=== PATIENT | female | born 1990 | race Caucasian/White ===

== ENCOUNTER 2016-11-27 16:17 | Emergency (ER) | payer SELFPAY ==
[~2016-11-27] VITALS: Ht 180.3 cm; Wt 108.9 kg
--- NOTE | 2016-11-27 17:41 | ED Cough/URI ---
General Chief Complaint: Cough/Cold/Flu Symptoms Stated Complaint: SOB,COUGHING,TIGHTNESS OF CHEST,DIZZINESS Nursing Triage Note: AMB TO ROOM WITH MALE REPORTS SHE HAS BEEN COUGHING FOR 1 WEEK ,AND LMP WAS IN OCTOBER THINKS SHE MAY BE PREG. Source: patient, other (significant other ) Exam Limitations: no limitations History of Present Illness Time seen by provider: 17:41 Initial Comments 26-year-old female patient presents to the emergency department with complaints of one-week onset of coughing, chest congestion, sore throat, ear pain. Reports overall malaise. States she did have one to 2 days of fever, but states no fever for 5 days. Patient states she could possibly be . Timing/Duration: constant, week Severity/Quality: productive cough (yellowish green sputum) Prior Episodes/Possible Cause: no prior episodes Modifying Factors: Worse With Coughing Allergies and Home Medications Allergies Uncoded Allergies: MUSCLE REXLANT (Allergy, Unknown, 11/27/16) Home Medications Albuterol Sulfate 6.7 Gm Hfa.aer.ad, 2 PUFF IH Q6H PRN for SHORTNESS OF BREATH, #1 Ref 0 Prescribed by: PEARL SANCHES on 11/27/161818 Doxycycline Hyclate 100 Mg Capsule, 100 MG PO BID, #20 Ref 0 Prescribed by: PEARL SANCHES on 11/27/161818 Prednisone 20 Mg Tab, 40 MG PO DAILY, #10 Ref 0 Prescribed by: PEARL SANCHES on 11/27/161818 Constitutional: see HPI, No fever, malaise EENTM: ear pain, hoarseness, nose congestion, throat pain, No throat swelling Respiratory: see HPI, cough, phlegm, short of breath, wheezing Cardiovascular: no symptoms reported Gastrointestinal: No abdominal pain, No constipation, No diarrhea, No nausea, No vomiting Genitourinary: no symptoms reported Musculoskeletal: no symptoms reported Skin: no symptoms reported Psychiatric/Neurological: No Symptoms Reported All Other Systems Reviewed Negative Unless Noted: Yes (Negative excepted noted.) Past Xcifbic-Yejuwy-Ftdpxi Hx Patient Social History Alcohol Use: Occasionally Uses Recreational Drug Use: No Smoking Status: Current Everyday Smoker Recent Foreign Travel: No Contact w/Someone Who Travel: No Recent Infectious Disease Expo: No Surgeries HX Surgeries: Yes Surgeries: Orthopedic Respiratory Hx Respiratory Disorders: Yes Respiratory Disorders: Asthma ((as a child)) Cardiovascular Hx Cardiac Disorders: No Neurological Hx Neurological Disorders: No Genitourinary Hx Genitourinary Disorders: No Gastrointestinal Hx Gastrointestinal Disorders: No Reviewed Nursing Assessment Reviewed/Agree w Nursing PMH: Yes Family Medical History Significant Family History: No Pertinent Family Hx Physical Exam Vital Signs Vital Sign - Last 12Hours 11/27/16 16:48 Temp 99.0 Pulse 92 Resp 18 B/P (MAP) 152/112 Pulse Ox 99 O2 Delivery Room Air Capillary Refill : Less Than 3 Seconds General Appearance: WD/WN, no apparent distress HEENT: PERRL/EOMI, TMs normal, pharyngeal erythema Neck: non-tender, full range of motion, supple, lymphadenopathy (R), lymphadenopathy (L) Respiratory: no respiratory distress, no accessory muscle use, decreased breath sounds, rhonchi, wheezing, expiration Cardiovascular: normal peripheral pulses, regular rate, rhythm, no edema, no murmur Gastrointestinal: non tender, soft, No distended Extremities: no pedal edema, normal capillary refill Neurologic/Psychiatric: alert, normal mood/affect, oriented x 3 Skin: normal color, warm/dry Progress/Results/Core Measures Results/Orders My Orders Orders - PEARL SANCHES PA Urine Bedside (11/27/16 17:21) Chest Pa/Lat (2 View) (11/27/16 17:21) Albuterol/Ipra Inhalation Soln (Duoneb I (11/27/16 18:15) Promethazine/ Codeine Syrup (Phenergan W (11/27/16 18:13) Methylprednisolone Sod Succ (Solu-Medrol (11/27/16 18:13) Svn Sm Volume Nebulizer Rt-Rfs (11/27/16 18:13) Rx-Albuterol Inhaler (Rx-Proair) (11/27/16 19:05) Medications Given in ED Current Medications Medications Dose Ordered Sig/Amor Route Start Time Stop Time Status Last Admin Dose Admin Albuterol/ Ipratropium 3 ml ONCE ONCE INH 11/27/16 18:15 11/27/16 18:16 DC 11/27/16 18:32 3 ML Vital Signs/I&O Vital Sign - Last 12Hours 11/27/16 11/27/16 11/27/16 16:48 18:32 19:09 Temp 99.0 Pulse 92 94 Resp 18 18 B/P (MAP) 152/112 Pulse Ox 99 100 96 O2 Delivery Room Air Blood Pressure Mean: 125 Diagnostic Imaging Diagonstic Imaging: Xray Plain Films/CT/US/NM/MRI: chest Comments EXAM: Chest x-ray PA and lateral views. COMPARISONS: None. FINDINGS: Lungs/ pleura: Lungs are clear. There is no pneumothorax. There is no pleural effusion. Mediastinum: Unremarkable. Pulmonary vasculature: Unremarkable. Heart : Unremarkable. Bones/extrathoracic soft tissue: Unremarkable. IMPRESSION: There is no radiographic evidence of acute cardiopulmonary process. Dictated on workstation # [id number] Reviewed: Reviewed by Me (radiology report reviewed by me.) Departure Communication Progress Notes Patient seen and evaluated. Diagnostic findings discussed with the patient. Patient was given 1 DuoNeb treatment, solu-Medrol, and Phenergan with codeine with improvement in symptoms in the emergency department. Lungs show improved breath sounds bilaterally with minimal expiratory wheeze in the left upper lobe. Proceed with discharge to home. Impression Impression: Primary Impression: Bronchitis Disposition: , SELF-CARE Condition: Improved Departure-Patient Inst. Decision time for Depature: 18:17 Referrals: NO,LOCAL PHYSICIAN (PCP) Primary Care Physician Patient Instructions: Acute Bronchitis, Adult (DC) Add. Discharge Instructions: All discharge instructions reviewed with patient and/or family. Voiced understanding. Medications as directed. Tylenol extra strength over-the- counter as directed for pain, headache, fever. Ibuprofen 800 mg by mouth every 8 hours as needed for pain, fever, headache." Cool humidifier if needed. Over- the-counter Afrin and saline nasal spray as directed for nasal congestion. Mucinex qxnz-wxe-yggochv for chest congestion. Follow-up with family practitioner for recheck if no improvement in symptoms. Return to the emergency department for worsened symptoms or any other concerns. Scripts Albuterol Sulfate (Proventil Hfa) 6.7 Gm Hfa.aer.ad 2 PUFF IH Q6H Y for SHORTNESS OF BREATH, #1 EACH 0 Refills Prov: PEARL SANCHES 11/27/16 Doxycycline Hyclate (Doxycycline Hyclate) 100 Mg Capsule 100 MG PO BID, #20 CAP 0 Refills Prov: PEARL SANCHES 11/27/16 Prednisone (Prednisone) 20 Mg Tab 40 MG PO DAILY, #10 TAB 0 Refills Prov: PEARL SANCHES 11/27/16 Work/School Note: Work Release Form Date Seen in the Emergency Department: November 27, 2016 Return to Work: November 29, 2016 Restrictions: No Restrictions PEARL SANCHES November 27, 2016 17:41
--- NOTE | 2016-11-27 18:10 | Diagnostic Imaging Report ---
CLINICAL INDICATION: Patient with cough, congestion and shortness of air and chest tightness x1 week which is getting worse. EXAM: Chest x-ray PA and lateral views. COMPARISONS: None. FINDINGS: Lungs/pleura: Lungs are clear. There is no pneumothorax. There is no pleural effusion. Mediastinum: Unremarkable. Pulmonary vasculature: Unremarkable. Heart: Unremarkable. Bones/extrathoracic soft tissue: Unremarkable. IMPRESSION: There is no radiographic evidence of acute cardiopulmonary process. Dictated by: Dictated on workstation # [id number]
[2016-11-27] MEDS ORDERED: PROMETHAZINE/ CODEINE SYRUP 5 ML UDC PO STA (18:13)
[2016-11-27] MEDS ORDERED: methylPREDNISolone 125 MG (Solu-MEDROL) VIAL IM STA (18:13)
[2016-11-27] MEDS ORDERED: RT-ALBUTEROL/IPRATROPIUM 3 ML (DUONEB) VIAL INH ONE (18:15)
[2016-11-27] MEDS ORDERED: PRD20T PO (18:19)
[2016-11-27] MEDS ORDERED: DOXY100C2 PO (18:19)
[2016-11-27] MEDS ORDERED: RT-ALBUINH IH (18:19)
[2016-11-27] MEDS ORDERED: RX-ALBUTEROL INHALER (PROAIR) 8 GM IH STA (19:05)
[2016-11-27 19:09] VITALS: BP 148/99
== END 2016-11-27 19:08 | disposition home or self-care (01) ==
LOC: ER 16:24
DX: J40 Bronchitis, not specified as acute or chronic (principal); R42 Dizziness and giddiness; F17.210 Nicotine dependence, cigarettes, uncomplicated
CPT/HCPCS: 71020; 84703; 94640; 96372; 99283

== ENCOUNTER 2018-10-16 12:10 | Emergency (ER) | payer SELFPAY ==
[~2018-10-16] VITALS: Ht 167.6 cm; Wt 83.9 kg
[~2018-10-16 12:10] MED LIST: DOXY100C2 PO; PRD20T PO; RT-ALBUINH IH
--- NOTE | 2018-10-16 13:21 | ED Cough/URI ---
General Chief Complaint: Cough/Cold/Flu Symptoms Stated Complaint: SORE THROAT;HEADACHE;FEVER Nursing Triage Note: PT CO OF FLU LIKE SX, SORE THROAT, EAR ACHE, INTERMITTENT FEVERS. Sepsis Screen: No Definite Risk Source: patient Exam Limitations: no limitations History of Present Illness Date Seen by Provider: Oct 16, 2018 Time Seen by Provider: 13:16 Initial Comments 28-year-old female who presents to the emergency room with complaints of flulike symptoms, sore throat, bilateral ear pain, intermittent fevers for the past 2 weeks. She reports taking hhuz-slh-borrkba medications without relief of throat pain. Timing/Duration: just prior to arrival Associated Symptoms: cough, fever/chills, sore throat Allergies and Home Medications Allergies Uncoded Allergies: MUSCLE REXLANT (Allergy, Unknown, 11/27/16) Home Medications Albuterol Sulfate 6.7 Gm Hfa.aer.ad, 2 PUFF IH Q6H PRN for SHORTNESS OF BREATH Prescribed by: PEARL SANCHES on 11/27/161818 Amoxicillin 500 Mg Capsule, 500 MG PO BID Prescribed by: ANTIONETTE MONTESINOS on 10/16/18 1329 Doxycycline Hyclate 100 Mg Capsule, 100 MG PO BID Prescribed by: PEARL SANCHES on 11/27/161818 Prednisone 20 Mg Tab, 40 MG PO DAILY Prescribed by: PEARL SANCHES on 11/27/161818 Patient Home Medication List Home Medication List Reviewed: Yes Review of Systems Review of Systems Constitutional: see HPI, chills, fever EENTM: see HPI, ear pain, throat pain Respiratory: see HPI, cough All Other Systems Reviewed Negative Unless Noted: Yes Past Jmbcfun-Sxdobp-Tjykol Hx Past Med/Social Hx: Reviewed Nursing Past Med/Soc Hx Patient Social History Alcohol Use: Denies Use Recreational Drug Use: No Smoking Status: Never a Smoker Recent Foreign Travel: No Contact w/Someone Who Travel: No Recent Infectious Disease Expo: No Recent Hopitalizations: No Past Medical History Surgeries: Yes Orthopedic Respiratory: No Asthma Cardiac: No Neurological: No Genitourinary: No Gastrointestinal: No Musculoskeletal: No Endocrine: No HEENT: No Cancer: No Psychosocial: No Integumentary: No Family Medical History No Pertinent Family Hx Physical Exam Vital Signs - First Documented 10/16/18 12:50 Temp 97.4 Pulse 85 Resp 18 B/P (MAP) 148/97 (114) Pulse Ox 97 Capillary Refill : Less Than 3 Seconds Height: 5'6.00" Weight: 185lbs. oz. 83.967063hb; BMI Method:Estimated General Appearance: WD/WN, no apparent distress HEENT: PERRL/EOMI, pharyngeal erythema, tonsillar exudate Neck: non-tender, full range of motion, supple, normal inspection, carotid bruit Respiratory: chest non-tender, lungs clear, normal breath sounds, no respiratory distress, no accessory muscle use, respiratory distress Cardiovascular: normal peripheral pulses, regular rate, rhythm, no edema, no gallop, no JVD, no murmur Extremities: normal capillary refill Neurologic/Psychiatric: alert, normal mood/affect, oriented x 3 Skin: normal color, warm/dry Progress/Results/Core Measures Suspected Sepsis Recent Fever Within 48 Hours: No Infection Criteria Present: None New/Unexplained Altered Menta: No Sepsis Screen: No Definite Risk SIRS Temperature:97.4 Pulse: 85 Respiratory Rate: 18 Blood Pressure 148 /97 Mean: 114 Results/Orders Lab Results Laboratory Tests Test 10/16/18 13:15 Range/Units Group A Streptococcus Screen NEGATIVE NEGATIVE Micro Results Microbiology 10/16/18 Throat Culture - Final, Complete No Beta Strep isolated 10/16/18 Influenza Types A,B Antigen (CHEPE) - Final, Complete My Orders Orders - ANTIONETTE MONTESINOS Influenza A And B Antigens (10/16/18 12:56) Rapid Strep A Screen (10/16/18 13:13) Vital Signs/I&O 10/16/18 10/16/18 12:50 13:48 Temp 97.4 97.4 Pulse 85 85 Resp 18 18 B/P (MAP) 148/97 (114) 148/97 (114) Pulse Ox 97 97 Capillary Refill : Less Than 3 Seconds Blood Pressure Mean: 114 Departure Impression Primary Impression: Influenza Additional Impression: Acute pharyngitis Disposition: 01 HOME, SELF-CARE Condition: Stable/Unchanged Departure-Patient Inst. Decision time for Depature: 13:27 Referrals: NO,LOCAL PHYSICIAN (PCP) Primary Care Physician Patient Instructions: Flu, Adult (DC) Add. Discharge Instructions: Continue to use pdxc-nhx-vjbmgsh ibuprofen and Tylenol for pain and fever. Take medications as directed. Return back to the emergency room for worsening symptoms or concerns as needed. Follow-up with your primary care provider within 1 week for recheck. All discharge instructions reviewed with patient and/ or family. Voiced understanding. Scripts Amoxicillin (Amoxicillin) 500 Mg Capsule 500 MG PO BID for 10 Days, #20 CAP Prov: ANTIONETTE MONTESINOS 10/16/18 ANTIONETTE MONTESINOS Oct 16, 2018 13:21
[2018-10-16] MEDS ORDERED: AMOX500C2 PO (13:29)
[2018-10-16 13:48] VITALS: BP 148/97
== END 2018-10-16 13:47 | disposition home or self-care (01) ==
LOC: EDUNIT# 12:10 → ER 12:11
DX: J11.1 Influenza due to unidentified influenza virus with other respiratory manifestations (principal); J02.9 Acute pharyngitis, unspecified; J45.909 Unspecified asthma, uncomplicated; Z88.8 Allergy status to other drugs, medicaments and biological substances; Z79.52 Long term (current) use of systemic steroids
CPT/HCPCS: 87430; 87804

== ENCOUNTER 2020-10-30 13:14 | Emergency (ER) | payer SELFPAY ==
[~2020-10-30] VITALS: Ht 180.3 cm; Wt 113.4 kg
[~2020-10-30 13:14] MED LIST changes: +AMOX500C2 PO
--- NOTE | 2020-10-30 14:52 | ED General ---
General Chief Complaint: General Problems/Pain Stated Complaint: CP,SOB Nursing Triage Note: PT REPORTS HAVING A PANIC ATTACK 2 DAYS AGO. SINCE THEN, PT HAS HAD STERNAL PAIN & EPIGASTRIC PAIN THAT SPREADS TO BILATERAL CHEST, ARMS, SHOULDERS, AND BACK. PT REPORTS SHE CAME TO THE ED TODAY DUE TO SHARP PAIN IN HER CHEST THAT CAME ON WHEN SHE WAS LIFTING A POT INTO THE OVEN. Nursing Sepsis Screen: No Definite Risk Source of Information: Patient Exam Limitations: No Limitations History of Present Illness Date Seen by Provider: Oct 30, 2020 Time Seen by Provider: 13:28 Initial Comments This is a 30-year-old female who presents to the ER with complaints of sharp chest wall, shoulder, back tenderness when she takes a deep breath. States that she recently had a severe panic attack 2 days ago and every since the panic attack she has been experiencing this increasing pain in her entire thorax region. States that this is happened in the past when she had a severe panic attack, however wanted to get checked out since the pain was persisting. Denies fever, chills, cough, shortness of breath, nausea/vomiting/diarrhea, abdominal pain. No h/o COVID, ill contacts, or recent vaccinations. Allergies and Home Medications Allergies Uncoded Allergies: MUSCLE REXLANT (Allergy, Unknown, 11/27/16) Home Medications Albuterol Sulfate 6.7 Gm Hfa.aer.ad, 2 PUFF IH Q6H PRN for SHORTNESS OF BREATH Prescribed by: PEARL SANCHES on 11/27/161818 Amoxicillin 500 Mg Capsule, 500 MG PO BID Prescribed by: ANTIONETTE MONTESINOS on 10/16/18 1329 Doxycycline Hyclate 100 Mg Capsule, 100 MG PO BID Prescribed by: PEARL SANCHES on 11/27/161818 Prednisone 20 Mg Tab, 40 MG PO DAILY Prescribed by: PEARL SANCHES on 11/27/161818 Patient Home Medication List Home Medication List Reviewed: Yes Review of Systems Review of Systems Constitutional: see HPI EENTM: no symptoms reported Respiratory: see HPI Cardiovascular: see HPI Gastrointestinal: no symptoms reported Genitourinary: no symptoms reported LMP: Oct 24, 2020 Musculoskeletal: see HPI Skin: no symptoms reported Psychiatric/Neurological: See HPI Hematologic/Lymphatic: No Symptoms Reported Immunological/Allergic: no symptoms reported Past Inxuxhq-Emzfhy-Mujjzq Hx Patient Social History Alcohol Use: Rarely Uses Smoking Status: Current Everyday Smoker Recent Infectious Disease Expo: No Recent Hopitalizations: No Seasonal Allergies Seasonal Allergies: No Past Medical History Surgeries: Yes Orthopedic Respiratory: No Asthma Cardiac: No Neurological: No Genitourinary: No Gastrointestinal: No Musculoskeletal: No Endocrine: No HEENT: No Cancer: No Psychosocial: No Integumentary: No Family Medical History No Pertinent Family Hx Physical Exam Vital Signs Vital Signs - First Documented 10/30/20 13:52 Temp 36.6 Pulse 90 Resp 16 B/P (MAP) 139/94 (109) Pulse Ox 98 Capillary Refill : Less Than 3 Seconds Height, Weight, BMI Height: 5'6.00" Weight: 185lbs. oz. 83.461770ps; 34.00 BMI Method:Estimated General Appearance: No Apparent Distress, WD/WN, Anxious Eyes: Bilateral Eye Normal Inspection, Bilateral Eye EOMI HEENT: TMs Normal, Normal ENT Inspection Neck: Full Range of Motion, Normal Inspection, Non Tender, Supple Respiratory: No Chest Non Tender (Chest wall tenderness/sternal tenderness ); Lungs Clear, Normal Breath Sounds, No Accessory Muscle Use Cardiovascular: Regular Rate, Rhythm, No Murmur Gastrointestinal: Non Tender, Soft Back: Normal Inspection, No Vertebral Tenderness Extremity: Normal Inspection, Normal Range of Motion, Non Tender Neurologic/Psychiatric: Alert, Oriented x3, No Motor/Sensory Deficits Skin: Normal Color, Warm/Dry Progress/Results/Core Measures Suspected Sepsis Recent Fever Within 48 Hours: No Infection Criteria Present: None New/Unexplained Altered Menta: No Sepsis Screen: No Definite Risk SIRS Temperature: Pulse: 90 Respiratory Rate: 16 Laboratory Tests 10/30/20 14:50: White Blood Count 9.3 Blood Pressure 139 /94 Mean: 109 Laboratory Tests 10/30/20 14:50: Creatinine 0.81, Platelet Count 359, Total Bilirubin 0.3 Results/Orders Lab Results Laboratory Tests Test 10/30/20 14:50 Range/Units White Blood Count 9.3 4.3-11.0 10^3/uL Red Blood Count 5.08 3.80-5.11 10^6/uL Hemoglobin 14.7 11.5-16.0 g/dL Hematocrit 44 35-52 % Mean Corpuscular Volume 87 80-99 fL Mean Corpuscular Hemoglobin 29 25-34 pg Mean Corpuscular Hemoglobin Concent 33 32-36 g/dL Red Cell Distribution Width 13.1 10.0-14.5 % Platelet Count 359 130-400 10^3/uL Mean Platelet Volume 10.5 9.0-12.2 fL Immature Granulocyte % (Auto) 0 % Neutrophils (%) (Auto) 62 42-75 % Lymphocytes (%) (Auto) 30 12-44 % Monocytes (%) (Auto) 5 0-12 % Eosinophils (%) (Auto) 3 0-10 % Basophils (%) (Auto) 1 0-10 % Neutrophils # (Auto) 5.7 1.8-7.8 X 10^3 Lymphocytes # (Auto) 2.8 1.0-4.0 X 10^3 Monocytes # (Auto) 0.5 0.0-1.0 X 10^3 Eosinophils # (Auto) 0.2 0.0-0.3 10^3/uL Basophils # (Auto) 0.1 0.0-0.1 10^3/uL Immature Granulocyte # (Auto) 0.0 0.0-0.1 10^3/uL Erythrocyte Sedimentation Rate 6 0-20 MM/HR D-Dimer < 0.27 0.00-0.49 UG/ML Sodium Level 137 135-145 MMOL/L Potassium Level 3.8 3.6-5.0 MMOL/L Chloride Level 106 98-107 MMOL/L Carbon Dioxide Level 22 21-32 MMOL/L Anion Gap 9 5-14 MMOL/L Blood Urea Nitrogen 9 7-18 MG/DL Creatinine 0.81 0.60-1.30 MG/DL Estimat Glomerular Filtration Rate > 60 BUN/Creatinine Ratio 11 Glucose Level 131 H 70-105 MG/DL Calcium Level 8.9 8.5-10.1 MG/DL Corrected Calcium 8.7 8.5-10.1 MG/DL Total Bilirubin 0.3 0.1-1.0 MG/DL Aspartate Amino Transf (AST/SGOT) 24 5-34 U/L Alanine Aminotransferase (ALT/SGPT) 37 0-55 U/L Alkaline Phosphatase 67 40-136 U/L Troponin I < 0.028 <0.028 NG/ML C-Reactive Protein High Sensitivity 0.26 0.00-0.50 MG/DL Total Protein 6.8 6.4-8.2 GM/DL Albumin 4.2 3.2-4.5 GM/DL My Orders Orders - JAIDEN FITZGERALD D [employer]AF[employer]Y [employer] OFFICER Cbc With Automated Diff (10/30/20 14:49) Comprehensive Metabolic Panel (10/30/20 14:49) Troponin I (10/30/20 14:49) Fibrin Degradation Products (10/30/20 14:49) Erythrocyte Sedimentation Rate (10/30/20 14:49) Hs C Reactive Protein (10/30/20 14:49) Orphenadrine Inj (Ed Only) (Norflex Inje (10/30/20 15:30) Ketorolac Injection (Toradol Injection) (10/30/20 15:30) Medications Given in ED Vital Signs/I&O 10/30/20 10/30/20 13:52 16:00 Temp 36.6 36.6 Pulse 90 80 Resp 16 16 B/P (MAP) 139/94 (109) 144/91 (109) Pulse Ox 98 99 Capillary Refill : Less Than 3 Seconds Blood Pressure Mean: 109 Progress Note : Progress Note Patient examined and in no acute distress. Her symptoms are likely from inflammation of the costal region due to her severe panic attack however will initiate cardiac work-up and add D-dimer to evaluate for possibility of PE. Initial EKG is unremarkable. Orders given for Toradol 60 mg IM and Norflex 60 mg IM. States that she is allergic to all muscle relaxants, discontinue Norflex. Labs reviewed and are unremarkable. Reports improvement of her symptoms with the Toradol. Discussed following up with primary care provider if her symptoms persist and she can always return to the emergency department if she has any worsening or concerning symptoms. Reviewed his discharge plan of care and she is agreeable with plan. ECG Initial ECG Impression Date: Oct 30, 2020 Initial ECG Impression Time: 14:26 Initial ECG Rate: 81 Initial ECG Rhythm: Normal Sinus Initial ECG Impression: Normal Departure Impression Primary Impression: Costochondral pain Disposition: 01 HOME, SELF-CARE Condition: Improved Departure-Patient Inst. Decision time for Depature: 15:52 Referrals: NO,LOCAL PHYSICIAN (PCP/Family) Primary Care Physician Add. Discharge Instructions: Plan: 1. Discharge home. 2. Use heat/ice 20 minutes at a time for the next few days. 3. Use Ibuprofen 600mg every 6-8 hours as needed for the next few days. Take with food. 4. Follow up with your doctor or return if symptoms persist or worsen. All discharge instructions reviewed with patient and/or family. Voiced understanding. JAIDEN FITZGERALD [employer]AF[employer] OFFICER Oct 30, 2020 14:52
[2020-10-30 15:07] LABS: BASOPHILS # (AUTO) 0.1 10^3/uL (0.0-0.1); BASOPHILS % (AUTO) 1 % (0-10); EOSINOPHILS # (AUTO) 0.2 10^3/uL (0.0-0.3); EOSINOPHILS % (AUTO) 3 % (0-10); HEMATOCRIT 44 % (35-52); HEMOGLOBIN 14.7 g/dL (11.5-16.0); LYMPHOCYTES # (AUTO) 2.8 X 10^3 (1.0-4.0); LYMPHOCYTES % (AUTO) 30 % (12-44); MEAN CORPUSCULAR HEMOGLOBIN 29 pg (25-34); MEAN CORPUSCULAR HGB CONC 33 g/dL (32-36); MEAN CORPUSCULAR VOLUME 87 fL (80-99); MEAN PLATELET VOLUME 10.5 fL (9.0-12.2); MONOCYTES # (AUTO) 0.5 X 10^3 (0.0-1.0); MONOCYTES % (AUTO) 5 % (0-12); NEUTROPHILS # (AUTO) 5.7 X 10^3 (1.8-7.8); NEUTROPHILS % (AUTO) 62 % (42-75); PLATELET COUNT 359 10^3/uL (130-400); WHITE BLOOD COUNT 9.3 10^3/uL (4.3-11.0)
[2020-10-30 15:14] LABS: ALBUMIN 4.2 GM/DL (3.2-4.5)
[2020-10-30 15:15] LABS: CHLORIDE 106 MMOL/L (98-107); POTASSIUM 3.8 MMOL/L (3.6-5.0); SODIUM 137 MMOL/L (135-145)
[2020-10-30 15:16] LABS: CALCIUM 8.9 MG/DL (8.5-10.1)
[2020-10-30 15:17] LABS: GLUCOSE 131 MG/DL (70-105); TOTAL PROTEIN 6.8 GM/DL (6.4-8.2)
[2020-10-30 15:18] LABS: CARBON DIOXIDE 22 MMOL/L (21-32)
[2020-10-30 15:19] LABS: BILIRUBIN,TOTAL 0.3 MG/DL (0.1-1.0)
[2020-10-30 15:20] LABS: ALKALINE PHOSPHATASE 67 U/L (40-136)
[2020-10-30 15:21] LABS: CREATININE SERUM 0.81 MG/DL (0.60-1.30); GFR ESTIMATED > 60
[2020-10-30 15:22] LABS: BUN/CREATININE RATIO 11
[2020-10-30 15:23] LABS: ALANINE AMINOTRANSFERASE 37 U/L (0-55)
[2020-10-30 15:25] LABS: ERYTHROCYTE SEDIMENTATION RATE 6 MM/HR (0-20)
[2020-10-30] MEDS ORDERED: KETOROLAC 30 MG/ML VIAL IM ONE (15:30)
[2020-10-30] MEDS: ORPHENADRINE 60 MG/2 ML (NORFLEX) AMP (ED ONLY) IM ONE ×2 (15:40→15:53)
[2020-10-30 16:00] VITALS: BP 144/91
== END 2020-10-30 16:00 | disposition home or self-care (01) ==
LOC: EDUNIT# 13:14 → ER 13:16
DX: R07.1 Chest pain on breathing (principal); J45.909 Unspecified asthma, uncomplicated; F17.200 Nicotine dependence, unspecified, uncomplicated; Z88.8 Allergy status to other drugs, medicaments and biological substances; Z79.52 Long term (current) use of systemic steroids
CPT/HCPCS: 36415; 80053; 84484; 85025; 85379; 85652; 86141; 93005

== ENCOUNTER 2020-11-05 03:04 | Emergency (ER) | payer SELFPAY ==
[~2020-11-05] VITALS: Ht 180.3 cm; Wt 131.5 kg
[2020-11-05] MEDS ORDERED: ASPIRIN 81 MG CHEW (CHILDREN'S ASA) PO ONE (03:15)
[2020-11-05 03:40] LABS: BASOPHILS # (AUTO) 0.1 10^3/uL (0.0-0.1); BASOPHILS % (AUTO) 1 % (0-10); EOSINOPHILS # (AUTO) 0.3 10^3/uL (0.0-0.3); EOSINOPHILS % (AUTO) 2 % (0-10); HEMATOCRIT 43 % (35-52); HEMOGLOBIN 14.3 g/dL (11.5-16.0); LYMPHOCYTES # (AUTO) 3.6 10^3/uL (1.0-4.0); LYMPHOCYTES % (AUTO) 26 % (12-44); MEAN CORPUSCULAR HEMOGLOBIN 29 pg (25-34); MEAN CORPUSCULAR HGB CONC 33 g/dL (32-36); MEAN CORPUSCULAR VOLUME 88 fL (80-99); MEAN PLATELET VOLUME 10.3 fL (9.0-12.2); MONOCYTES % (AUTO) 8 % (0-12); NEUTROPHILS # (AUTO) 8.6 10^3/uL (1.8-7.8); NEUTROPHILS % (AUTO) 63 % (42-75); PLATELET COUNT 337 10^3/uL (130-400); WHITE BLOOD COUNT 13.6 10^3/uL (4.3-11.0)
[2020-11-05 03:47] LABS: ALANINE AMINOTRANSFERASE 51 U/L (0-55); ALBUMIN 4.5 GM/DL (3.2-4.5); ALKALINE PHOSPHATASE 71 U/L (40-136); AMYLASE 48 U/L (25-125); BILIRUBIN,TOTAL 0.3 MG/DL (0.1-1.0); BUN/CREATININE RATIO 17; CARBON DIOXIDE 20 MMOL/L (21-32); CHLORIDE 106 MMOL/L (98-107); CREATINE KINASE 256 U/L (29-168); CREATININE SERUM 0.87 MG/DL (0.60-1.30); GFR ESTIMATED > 60; GLUCOSE 88 MG/DL (70-105); LIPASE 16 U/L (8-78); POTASSIUM 4.9 MMOL/L (3.6-5.0); SODIUM 139 MMOL/L (135-145); TOTAL PROTEIN 7.6 GM/DL (6.4-8.2)
[2020-11-05 03:50] LABS: BILIRUBIN,URINE NEGATIVE (NEGATIVE); CLARITY,URINE CLEAR; COLOR,URINE YELLOW; GLUCOSE, URINE (UA) NEGATIVE (NEGATIVE); KETONES,URINE NEGATIVE (NEGATIVE); LEUKOCYTE ESTERASE ,URINE 1+ (NEGATIVE); NITRITE,URINE NEGATIVE (NEGATIVE); PROTEIN,URINE NEGATIVE (NEGATIVE)
[2020-11-05 03:53] LABS: FIBRIN DEGRADATION PRODUCTS 0.28 UG/ML (0.00-0.49); PROTHROMBIN TIME PATIENT 13.2 SEC (12.2-14.7)
[2020-11-05 03:54] LABS: CREATINE KINASE MB 2.7 NG/ML (<6.6)
[2020-11-05 04:05] LABS: BACTERIA,URINE NEGATIVE /HPF; RBC,URINE 0-2 /HPF
[2020-11-05 04:06] LABS: AMPHETAMINE SCREEN, URINE NEGATIVE (NEGATIVE); BARBITURATE SCREEN URINE NEGATIVE (NEGATIVE); BENZODIAZEPINES SCREEN URINE NEGATIVE (NEGATIVE); CANNABINOID SCREEN, URINE NEGATIVE (NEGATIVE); COCAINE SCREEN URINE NEGATIVE (NEGATIVE); METHADONE STAT NEGATIVE (NEGATIVE); METHAMPHETAMINE SCREEN URINE S NEGATIVE (NEGATIVE); OPIATE SCREEN URINE NEGATIVE (NEGATIVE); OXYCODONE STAT NEGATIVE (NEGATIVE); PROPOXYPHENE STAT NEGATIVE (NEGATIVE); TRICYCLIC ANTIDEPRESSANTS SCRE NEGATIVE (NEGATIVE)
[2020-11-05 04:07] LABS: ERYTHROCYTE SEDIMENTATION RATE 9 MM/HR (0-20)
[2020-11-05] MEDS ORDERED: KETOROLAC 30 MG/ML VIAL IVP STA (04:26)
[2020-11-05] MEDS ORDERED: PANT40TA2 PO (04:26)
[2020-11-05] MEDS ORDERED: NAPR500T8 PO (04:26)
--- NOTE | 2020-11-05 04:26 | ED Cardiac General ---
History of Present Illness General Chief Complaint: Chest Pain Stated Complaint: CHEST PAIN;IRREGULAR HEART BEAT;L SIDE NECK PAIN Nursing Triage Note: PAIN STARTED AT 2 AM, MIDSTERNAL RADIATIONG TO LEFT JAW. OFF AND ON SINCE FRIDAY WHEN SHE WAS HERE IN THIS ER LAST. MADE A FOLLOWUP APPOINTMENT BUT STARTED HAVING CHEST IPAIN TONIGHT AND FEELS HER HEART IS BEATING IRREGULARLY. PAIN 2/10, A&OX4, CALL LIGHT AND SO AT BEDSIDE. History of Present Illness NTG SL GRIPS: No ASA po GRIPS: No Allergies and Home Medications Allergies Uncoded Allergies: MUSCLE REXLANT (Allergy, Unknown, 11/27/16) Home Medications Albuterol Sulfate 6.7 Gm Hfa.aer.ad, 2 PUFF IH Q6H PRN for SHORTNESS OF BREATH Prescribed by: PEARL SANCHES on 11/27/161818 Amoxicillin 500 Mg Capsule, 500 MG PO BID Prescribed by: ANTIONETTE MONTESINOS on 10/16/18 1329 Doxycycline Hyclate 100 Mg Capsule, 100 MG PO BID Prescribed by: PEARL SANCHES on 11/27/161818 Naproxen 500 Mg Tablet.dr, 500 MG PO BID Prescribed by: RANULFO MOTT on 11/05/20425 Pantoprazole Sodium 40 Mg Tablet.dr, 40 MG PO DAILY Prescribed by: RANULFO MOTT on 11/05/20425 Prednisone 20 Mg Tab, 40 MG PO DAILY Prescribed by: PEARL SANCHES on 11/27/161818 Past Yoqagwq-Zbdfvg-Xywkvm Hx Patient Social History Alcohol Use: Denies Use Recent Infectious Disease Expo: No Recent Hopitalizations: No Seasonal Allergies Seasonal Allergies: No Past Medical History Surgeries: Yes Orthopedic Respiratory: No Asthma Cardiac: No Neurological: No : No Last Menstrual Period: Nov 01, 2020 Genitourinary: No Gastrointestinal: No Musculoskeletal: No Endocrine: No HEENT: No Cancer: No Psychosocial: No Integumentary: No Blood Disorders: No Adverse Reaction/Blood Tranf: No Family Medical History No Pertinent Family Hx Physical Exam Vital Signs Vital Signs - First Documented 11/05/20 03:10 Temp 36.4 Pulse 80 Resp 18 B/P (MAP) 179/103 (128) Pulse Ox 100 Capillary Refill : Less Than 3 Seconds Height, Weight, BMI Height: 5'6.00" Weight: 185lbs. oz. 83.190668bg; 40.00 BMI Method:Estimated Progress/Results/Core Measures Results/Orders Lab Results Laboratory Tests Test 11/05/20 03:15 11/05/20 03:33 11/05/20 03:42 Range/Units Sodium Level 139 135-145 MMOL/L Potassium Level 4.9 3.6-5.0 MMOL/L Chloride Level 106 98-107 MMOL/L Carbon Dioxide Level 20 L 21-32 MMOL/L Anion Gap 13 5-14 MMOL/L Blood Urea Nitrogen 15 7-18 MG/DL Creatinine 0.87 0.60-1.30 MG/DL Estimat Glomerular Filtration Rate > 60 BUN/Creatinine Ratio 17 Glucose Level 88 70-105 MG/DL Calcium Level 10.0 8.5-10.1 MG/DL Corrected Calcium 9.6 8.5-10.1 MG/DL Magnesium Level 2.0 1.6-2.4 MG/DL Total Bilirubin 0.3 0.1-1.0 MG/DL Aspartate Amino Transf (AST/SGOT) 34 5-34 U/L Alanine Aminotransferase (ALT/SGPT) 51 0-55 U/L Alkaline Phosphatase 71 40-136 U/L Total Creatine Kinase 256 H 29-168 U/L Creatine Kinase MB 2.7 <6.6 NG/ML Myoglobin 41.9 10.0-92.0 NG/ML Troponin I < 0.028 <0.028 NG/ML C-Reactive Protein High Sensitivity 0.60 H 0.00-0.50 MG/DL Total Protein 7.6 6.4-8.2 GM/DL Albumin 4.5 3.2-4.5 GM/DL Amylase Level 48 25-125 U/L Lipase 16 8-78 U/L Serum Alcohol < 10 <10 MG/DL White Blood Count 13.6 H 4.3-11.0 10^3/uL Red Blood Count 4.94 3.80-5.11 10^6/uL Hemoglobin 14.3 11.5-16.0 g/dL Hematocrit 43 35-52 % Mean Corpuscular Volume 88 80-99 fL Mean Corpuscular Hemoglobin 29 25-34 pg Mean Corpuscular Hemoglobin Concent 33 32-36 g/dL Red Cell Distribution Width 13.0 10.0-14.5 % Platelet Count 337 130-400 10^3/uL Mean Platelet Volume 10.3 9.0-12.2 fL Immature Granulocyte % (Auto) 0 % Neutrophils (%) (Auto) 63 42-75 % Lymphocytes (%) (Auto) 26 12-44 % Monocytes (%) (Auto) 8 0-12 % Eosinophils (%) (Auto) 2 0-10 % Basophils (%) (Auto) 1 0-10 % Neutrophils # (Auto) 8.6 H 1.8-7.8 10^3/uL Lymphocytes # (Auto) 3.6 1.0-4.0 10^3/uL Monocytes # (Auto) 1.0 0.0-1.0 10^3/uL Eosinophils # (Auto) 0.3 0.0-0.3 10^3/uL Basophils # (Auto) 0.1 0.0-0.1 10^3/uL Immature Granulocyte # (Auto) 0.0 0.0-0.1 10^3/uL Erythrocyte Sedimentation Rate 9 0-20 MM/HR Prothrombin Time 13.2 12.2-14.7 SEC INR Comment 1.0 0.8-1.4 Activated Partial Thromboplast Time 36 H 24-35 SEC D-Dimer 0.28 0.00-0.49 UG/ML B-Type Natriuretic Peptide < 10.0 <100.0 PG/ML Urine Color YELLOW Urine Clarity CLEAR Urine pH 6.0 5-9 Urine Specific [place] 1.010 L 1.016-1.022 Urine Protein NEGATIVE NEGATIVE Urine Glucose (UA) NEGATIVE NEGATIVE Urine Ketones NEGATIVE NEGATIVE Urine Nitrite NEGATIVE NEGATIVE Urine Bilirubin NEGATIVE NEGATIVE Urine Urobilinogen 0.2 < = 1.0 MG/DL Urine Leukocyte Esterase 1+ H NEGATIVE Urine RBC (Auto) TRACE-I NEGATIVE Urine RBC 0-2 /HPF Urine WBC NONE /HPF Urine Squamous Epithelial Cells 5-10 /HPF Urine Crystals NONE /LPF Urine Bacteria NEGATIVE /HPF Urine Casts NONE /LPF Urine Mucus NEGATIVE /LPF Urine Culture Indicated NO Urine Opiates Screen NEGATIVE NEGATIVE Urine Oxycodone Screen NEGATIVE NEGATIVE Urine Methadone Screen NEGATIVE NEGATIVE Urine Propoxyphene Screen NEGATIVE NEGATIVE Urine Barbiturates Screen NEGATIVE NEGATIVE Ur Tricyclic Antidepressants Screen NEGATIVE NEGATIVE Urine Phencyclidine Screen NEGATIVE NEGATIVE Urine Amphetamines Screen NEGATIVE NEGATIVE Urine Methamphetamines Screen NEGATIVE NEGATIVE Urine Benzodiazepines Screen NEGATIVE NEGATIVE Urine Cocaine Screen NEGATIVE NEGATIVE Urine Cannabinoids Screen NEGATIVE NEGATIVE My Orders Orders - RANULFO MOTT DO Ed Iv/Invasive Line Start (11/05/20 03:08) Urine Bedside (11/05/20 03:08) Ekg Tracing (11/05/20 03:08) Monitor-Rhythm Ecg Trace Only (11/05/20 03:08) Alcohol (11/05/20 03:08) Amylase (11/05/20 03:08) BNP (11/05/20 03:08) Cbc With Automated Diff (11/05/20 03:08) Comprehensive Metabolic Panel (11/05/20 03:08) Creatine Kinase (11/05/20 03:08) Creatine Kinase Mb (11/05/20 03:08) Hs C Reactive Protein (11/05/20 03:08) Fibrin Degradation Products (11/05/20 03:08) Drug Screen Stat (Urine) (11/05/20 03:08) Lipase (11/05/20 03:08) Magnesium (11/05/20 03:08) Protime With Inr (11/05/20 03:08) Partial Thromboplastin Time (11/05/20 03:08) Ua Culture If Indicated (11/05/20 03:08) Erythrocyte Sedimentation Rate (11/05/20 03:08) Myoglobin Serum (11/05/20 03:08) Troponin I (11/05/20 03:08) Chest 1 View, Ap/Pa Only (11/05/20 03:08) Aspirin Chewable Tablet (Baby Aspirin Ch (11/05/20 03:15) Medications Given in ED Current Medications Medications Dose Ordered Sig/Amor Route Start Time Stop Time Status Last Admin Dose Admin Aspirin 324 mg ONCE ONCE PO 11/05/20 03:15 11/05/20 03:16 DC 11/05/20 03:20 324 MG Vital Signs/I&O 11/05/20 03:10 Temp 36.4 Pulse 80 Resp 18 B/P (MAP) 179/103 (128) Pulse Ox 100 Blood Pressure Mean: 128 Departure Impression Primary Impression: Chest pain Additional Impression: Palpitations Disposition: 01 HOME, SELF-CARE Condition: Improved Departure-Patient Inst. Referrals: [facility] [place] Patient Instructions: Chest Pain (DC), Palpitations (DC) Add. Discharge Instructions: HOME, REST TYLENOL NEEDED FOR PAIN AVOID CAFFEINE, ENERGY DRINKS, DECONGESTANTS, OR ANY STIMULANTS FOLLOW UP WITH [facility] IN 2-3 DAYS FOR FURTHER CARE RETURN TO ER IF SYMPTOMS WORSEN All discharge instructions reviewed with patient and/or family. Voiced understanding. Scripts Pantoprazole Sodium (Protonix) 40 Mg Tablet. 40 MG PO DAILY, #15 TAB Prov: RANULFO MOTT DO 11/05/20 Naproxen (Naproxen) 500 Mg Tablet. 500 MG PO BID, #20 TAB Prov: RANULFO MOTT DO 11/05/20 RANULFO MOTT DO Nov 05, 2020 04:26
[2020-11-05] MEDS ORDERED: PANTOPRAZOLE 40 MG (PROTONIX) TAB PO ONE (04:30)
[2020-11-05 04:53] VITALS: BP 143/99
--- NOTE | 2020-11-05 07:44 | Diagnostic Imaging Report ---
PATIENT HISTORY: Chest pain. TECHNIQUE: Single frontal view of the chest. COMPARISON: 11/27/2016 FINDINGS: The lung volumes are normal. No focal consolidation is seen. No large pleural effusion or pneumothorax is seen. The cardiomediastinal silhouette is normal in size and contour. No acute osseous abnormality is seen. IMPRESSION: No acute pulmonary abnormality seen. Dictated by: Dictated on workstation # [id number]
== END 2020-11-05 04:52 | disposition home or self-care (01) ==
LOC: EDUNIT# 03:04 → ER 03:07
DX: R07.9 Chest pain, unspecified (principal); R00.2 Palpitations; J45.909 Unspecified asthma, uncomplicated; Z88.8 Allergy status to other drugs, medicaments and biological substances; Z79.52 Long term (current) use of systemic steroids
CPT/HCPCS: 71045; 80053; 80306; 81000; 82150; 82550; 82553; 83690; 83735; 83874; 83880; 84484; 84703; 85025; 85379; 85610; 85652; 85730; 86141; 93005; 93041; 99284; G0480; 36415; 80320

== ENCOUNTER 2020-11-06 23:59 | Emergency (ER) | payer SELFPAY ==
[~2020-11-06] VITALS: Ht 180.3 cm; Wt 131.5 kg
[~2020-11-06 23:59] MED LIST changes: +NAPR500T8 PO; +PANT40TA2 PO
[2020-11-07] MEDS ORDERED: FAMOTIDINE 20 MG (PEPCID) TABLET PO STA (00:13)
[2020-11-07] MEDS ORDERED: ANTACID SUSP 30 ML UDC (MYLANTA) PO ONE (00:15)
[2020-11-07] MEDS ORDERED: LIDOCAINE 2% VISCOUS 15 ML UDC PO ONE (00:15)
--- NOTE | 2020-11-07 00:20 | ED Chest Pain ---
General Chief Complaint: Chest Pain Stated Complaint: CP,SOB Nursing Triage Note: PT AMBULATE TO ROOM 05 WITH C/O CHEST PAIN X8-9 DAYS. PT STATES SHE WAS SEEN IN THIS ED FOR SAME C/O AND FOLLOWED UP WITH THE CLINIC. Nursing Sepsis Screen: No Definite Risk Source: patient Exam Limitations: no limitations History of Present Illness Date Seen by Provider: Nov 07, 2020 Time Seen by Provider: 00:03 Initial Comments Patient presents ER by private conveyance with her significant other chief complaint last 8 days has been having persistent chest pressure and pain with intermittent palpitations. She says she is having them while on the monitor. She has come out to the ER been worked up and [facility] back [facility] They did some blood work today for her thyroid and other problems. She does not have the results of those. She is had blood work and EKGs as well as chest x-rays. She has not had a gallbladder work-up. She says she has a history of GERD when she was 11 she had to have an EGD. She has not tried anything for her pain except for Tylenol and ibuprofen which she says are only marginally beneficial. No fevers chills cough nausea vomiting diarrhea. She says the pain is mostly on the left side of her chest radiating up into her neck and causing some tingling sensation to her left shoulder blade. Her dad has a history of diabetes and her mom has a history of hypertension. She thinks her dad might have atrial fibrillation but no early-onset coronary artery disease. She denies a history of hyperlipidemia, hypertension or diabetes. She smokes about a pack of cigarettes per day but is working on quitting. Allergies and Home Medications Allergies Uncoded Allergies: MUSCLE REXLANT (Allergy, Unknown, 11/27/16) Home Medications Albuterol Sulfate 6.7 Gm Hfa.aer.ad, 2 PUFF IH Q6H PRN for SHORTNESS OF BREATH Prescribed by: PEARL SANCHES on 11/27/161818 Amoxicillin 500 Mg Capsule, 500 MG PO BID Prescribed by: ANTIONETTE MONTESINOS on 10/16/18 1329 Doxycycline Hyclate 100 Mg Capsule, 100 MG PO BID Prescribed by: PEARL SANCHES on 11/27/161818 Naproxen 500 Mg Tablet.dr, 500 MG PO BID Prescribed by: RANULFO MOTT on 4/25/21 0426 Pantoprazole Sodium 40 Mg Tablet.dr, 40 MG PO DAILY Prescribed by: RANULFO MOTT on 11/05/20425 Prednisone 20 Mg Tab, 40 MG PO DAILY Prescribed by: PEARL SANCHES on 11/27/16 181 Patient Home Medication List Home Medication List Reviewed: Yes Review of Systems Review of Systems Constitutional: No chills, No diaphoresis EENTM: No Blurred Vision, No Double Vision Respiratory: Denies Cough; Shortness of Air Cardiovascular: See HPI, Chest Pain; Denies Edema; Palpitations Gastrointestinal: Denies Abdomen Distended, Denies Abdominal Pain Genitourinary: Denies Burning, Denies Discharge Musculoskeletal: No back pain, No joint pain Skin: No change in color, No dryness, No pruritus, No rash Psychiatric/Neurological: Denies Headache, Denies Numbness All Other Systems Reviewed Negative Unless Noted: Yes Past Exhqfuu-Wfmkgi-Yhkmje Hx Patient Social History Alcohol Use: Denies Use Smoking Status: Current Everyday Smoker Recent Infectious Disease Expo: No Recent Hopitalizations: No Seasonal Allergies Seasonal Allergies: No Past Medical History Surgeries: Yes Orthopedic Respiratory: No Asthma Cardiac: No Neurological: No Genitourinary: No Gastrointestinal: No Musculoskeletal: No Endocrine: No HEENT: No Cancer: No Psychosocial: No Integumentary: No Blood Disorders: No Adverse Reaction/Blood Tranf: No Family Medical History No Pertinent Family Hx Physical Exam Vital Signs Vital Signs - First Documented 11/07/20 00:07 Temp 36.1 Pulse 87 Resp 19 B/P (MAP) 176/100 (125) O2 Delivery Room Air Capillary Refill : Less Than 3 Seconds Height, Weight, BMI Height: 5'6.00" Weight: 185lbs. oz. 83.316496dw; 40.00 BMI Method:Estimated General Appearance: Anxious, Mild Distress, Obese HEENT: PERRL/EOMI, Pharynx Normal, Moist Mucous Membranes Neck: Full Range of Motion, Normal Inspection, Non Tender Respiratory: Chest Non Tender, Lungs Clear, Normal Breath Sounds, No Accessory Muscle Use, No Respiratory Distress Cardiovascular: Regular Rate, Rhythm, No Edema, Normal Peripheral Pulses Gastrointestinal: Normal Bowel Sounds, No Organomegaly, Soft, Tenderness (Left upper quadrant tenderness without splenomegaly. Negative for Silva's sign.) Extremity: Normal Capillary Refill, Normal Inspection, No Pedal Edema Neurologic/Psychiatric: Alert, Oriented x3 Skin: Normal Color, Warm/Dry Progress/Results/Core Measures Results/Orders Lab Results Laboratory Tests Test 11/07/20 00:15 Range/Units White Blood Count 12.1 H 4.3-11.0 10^3/uL Red Blood Count 5.06 3.80-5.11 10^6/uL Hemoglobin 14.7 11.5-16.0 g/dL Hematocrit 45 35-52 % Mean Corpuscular Volume 88 80-99 fL Mean Corpuscular Hemoglobin 29 25-34 pg Mean Corpuscular Hemoglobin Concent 33 32-36 g/dL Red Cell Distribution Width 13.1 10.0-14.5 % Platelet Count 358 130-400 10^3/uL Mean Platelet Volume 10.2 9.0-12.2 fL Immature Granulocyte % (Auto) 0 % Neutrophils (%) (Auto) 56 42-75 % Lymphocytes (%) (Auto) 33 12-44 % Monocytes (%) (Auto) 8 0-12 % Eosinophils (%) (Auto) 3 0-10 % Basophils (%) (Auto) 1 0-10 % Neutrophils # (Auto) 6.8 1.8-7.8 10^3/uL Lymphocytes # (Auto) 4.0 1.0-4.0 10^3/uL Monocytes # (Auto) 1.0 0.0-1.0 10^3/uL Eosinophils # (Auto) 0.3 0.0-0.3 10^3/uL Basophils # (Auto) 0.1 0.0-0.1 10^3/uL Immature Granulocyte # (Auto) 0.0 0.0-0.1 10^3/uL Prothrombin Time 13.7 12.2-14.7 SEC INR Comment 1.0 0.8-1.4 Activated Partial Thromboplast Time 38 H 24-35 SEC D-Dimer < 0.27 0.00-0.49 UG/ML Sodium Level 140 135-145 MMOL/L Potassium Level 4.1 3.6-5.0 MMOL/L Chloride Level 104 98-107 MMOL/L Carbon Dioxide Level 24 21-32 MMOL/L Anion Gap 12 5-14 MMOL/L Blood Urea Nitrogen 13 7-18 MG/DL Creatinine 0.98 0.60-1.30 MG/DL Estimat Glomerular Filtration Rate > 60 BUN/Creatinine Ratio 13 Glucose Level 91 70-105 MG/DL Calcium Level 10.0 8.5-10.1 MG/DL Corrected Calcium 9.6 8.5-10.1 MG/DL Magnesium Level 1.8 1.6-2.4 MG/DL Total Bilirubin 0.4 0.1-1.0 MG/DL Aspartate Amino Transf (AST/SGOT) 22 5-34 U/L Alanine Aminotransferase (ALT/SGPT) 40 0-55 U/L Alkaline Phosphatase 82 40-136 U/L Myoglobin 47.7 10.0-92.0 NG/ML Troponin I < 0.028 <0.028 NG/ML C-Reactive Protein High Sensitivity 0.65 H 0.00-0.50 MG/DL Total Protein 7.3 6.4-8.2 GM/DL Albumin 4.5 3.2-4.5 GM/DL Lipase 20 8-78 U/L My Orders Orders - MAYAALFREDO Cbc With Automated Diff (11/07/20 00:13) Magnesium (11/07/20:13) Chest 1 View, Ap/Pa Only (11/07/20 00:13) Ekg Tracing (11/07/20 00:13) Comprehensive Metabolic Panel (11/07/20 00:13) Myoglobin Serum (11/07/20:13) Protime With Inr (11/07/20 00:13) Partial Thromboplastin Time (11/07/20 00:13) O2 (11/07/20 00:13) Monitor-Rhythm Ecg Trace Only (11/07/20 00:13) Lipid Panel (11/08/20 06:00) Ed Iv/Invasive Line Start (11/07/20 00:13) Lipase (11/07/20 00:13) Fibrin Degradation Products (11/07/20 00:13) Troponin I (11/07/20 00:13) Lidocaine 2% Viscous 15 Ml (Xylocaine Vi (11/07/20 00:15) Famotidine Tablet (Pepcid Tablet) (11/07/20 00:13) Antacid Suspension (Mylanta Suspension (11/07/20 00:15) Hs C Reactive Protein (11/07/20 00:25) Medications Given in ED Current Medications Medications Dose Ordered Sig/Amor Route Start Time Stop Time Status Last Admin Dose Admin Al Hydrox/Mg Hydrox/Simethicone 30 ml ONCE ONCE PO 11/07/20 00:15 11/07/20 00:16 DC 11/07/20 00:23 30 ML Lidocaine HCl 15 ml ONCE ONCE PO 11/07/20 00:15 11/07/20 00:16 DC 11/07/20 00:23 15 ML Vital Signs/I&O 11/07/20 11/07/20 00:07 00:11 Temp 36.1 Pulse 87 Resp 19 B/P (MAP) 176/100 (125) O2 Delivery Room Air Room Air Blood Pressure Mean: 125 Progress Progress Note #1: Time: 00:21 Progress Note Differential includes GI, costochondritis, bronchospasm, gallbladder, pericarditis/myocarditis. Her chest wall is nontender to palpation and does not reproduce by deep inspiration so pleural-parenchymal/costochondritis sounds less likely. We will give her a GI cocktail. She has clear lung sounds with good air movement so bronchospasm is less likely however she does smoke. She is not on control but she could have some risks for a pulmonary embolism over the last 8 days so we will check a D-dimer. We will check a troponin and her EKG is okay pericarditis/myocarditis is still a possibility. Negative D-dimer and unremarkable CRP 2 days ago. Progress Note #2: Time: 01:30 Progress Note We did not make a significant impact on her pain. She is not having any nausea. We could not find any dangerous, surgical source of her pain. Plan to have her follow-up with her primary care provider. We are going to put her on some Carafate and pantoprazole. She did not experience any significant relief from the GI cocktail. We should consider her gallbladder as a source of her discomfort as well. Initial ECG Impression Date: Nov 07, 2020 Initial ECG Impression Time: 00:09 Initial ECG Rate: 66 Initial ECG Rhythm: Normal Sinus Initial ECG Intervals: Normal Initial ECG Impression: Normal Initial ECG Comparisson: Unchanged Comment Normal sinus rhythm without clinically relevant ST changes. Diagnostic Imaging Diagonstic Imaging: Xray Plain Films/CT/US/NM/MRI: chest Reviewed: Reviewed by Me Departure Impression Primary Impression: Chest pain Qualified Codes: R07.9 - Chest pain, unspecified Disposition: HOME, SELF-CARE Condition: Stable Departure-Patient Inst. Decision time for Depature: 01:31 Referrals: [facility]/SNEHA NO,LOCAL PHYSICIAN (PCP) Primary Care Physician Patient Instructions: Chest Pain That Is Not Caused by the Heart (DC) Add. Discharge Instructions: While we could not discover the source of your pain we did rule out emergent, surgical reasons for your chest pain. You need to follow-up with your primary care team at our community hospital and look for the source of your discomfort. Start pantoprazole 40 mg daily. Carafate for the next 2 weeks 4 times a day. Take a half an hour before meals and at bedtime. All discharge instructions reviewed with patient and/or family. Voiced understanding. Scripts Pantoprazole Sodium (Pantoprazole Sodium) 40 Mg Tablet.dr 40 MG PO DAILY for 30 Days, #30 TAB 0 Refills Prov: ALFREDO TREJO 11/07/20 Sucralfate (Carafate) 1 Gm Tablet 1 GM PO QIDACHS for 14 Days, #56 TAB 0 Refills Prov: ALFREDO TREJO 11/07/20 Copy Copies To 1: ALEJANDRA HARRIS DO ALFREDO TREJO Nov 07, 2020 00:20
[2020-11-07 00:23] LABS: BASOPHILS # (AUTO) 0.1 10^3/uL (0.0-0.1); BASOPHILS % (AUTO) 1 % (0-10); EOSINOPHILS # (AUTO) 0.3 10^3/uL (0.0-0.3); EOSINOPHILS % (AUTO) 3 % (0-10); HEMATOCRIT 45 % (35-52); HEMOGLOBIN 14.7 g/dL (11.5-16.0); LYMPHOCYTES % (AUTO) 33 % (12-44); MEAN CORPUSCULAR HEMOGLOBIN 29 pg (25-34); MEAN CORPUSCULAR HGB CONC 33 g/dL (32-36); MEAN CORPUSCULAR VOLUME 88 fL (80-99); MEAN PLATELET VOLUME 10.2 fL (9.0-12.2); MONOCYTES % (AUTO) 8 % (0-12); NEUTROPHILS # (AUTO) 6.8 10^3/uL (1.8-7.8); NEUTROPHILS % (AUTO) 56 % (42-75); PLATELET COUNT 358 10^3/uL (130-400); WHITE BLOOD COUNT 12.1 10^3/uL (4.3-11.0)
[2020-11-07 00:35] LABS: PROTHROMBIN TIME PATIENT 13.7 SEC (12.2-14.7)
[2020-11-07 00:46] LABS: ALANINE AMINOTRANSFERASE 40 U/L (0-55); ALBUMIN 4.5 GM/DL (3.2-4.5); ALKALINE PHOSPHATASE 82 U/L (40-136); BILIRUBIN,TOTAL 0.4 MG/DL (0.1-1.0); BUN/CREATININE RATIO 13; CARBON DIOXIDE 24 MMOL/L (21-32); CHLORIDE 104 MMOL/L (98-107); CREATININE SERUM 0.98 MG/DL (0.60-1.30); GFR ESTIMATED > 60; GLUCOSE 91 MG/DL (70-105); LIPASE 20 U/L (8-78); MAGNESIUM 1.8 MG/DL (1.6-2.4); POTASSIUM 4.1 MMOL/L (3.6-5.0); SODIUM 140 MMOL/L (135-145); TOTAL PROTEIN 7.3 GM/DL (6.4-8.2)
[2020-11-07] MEDS ORDERED: SUCR1TAB36 PO (01:36)
[2020-11-07] MEDS ORDERED: PANT40TA52 PO (01:36)
[2020-11-07 01:49] VITALS: BP 107/77
--- NOTE | 2020-11-07 06:34 | Diagnostic Imaging Report ---
INDICATION: Chest pain x8 days. TECHNIQUE: Single view chest 12:29 AM. CORRELATION STUDY: 11/05/2020 FINDINGS: The heart size, mediastinal configuration and pulmonary vascularity are within normal limits. The lungs are clear with no consolidating infiltrate. There is no significant effusion or pneumothorax. IMPRESSION: 1. Negative appearing portable chest. Dictated by: Dictated on workstation # [id number]
== END 2020-11-07 01:49 | disposition home or self-care (01) ==
LOC: EDUNIT# 23:59 → ER 11-07 00:02
DX: R07.9 Chest pain, unspecified (principal); E66.9 Obesity, unspecified; J45.909 Unspecified asthma, uncomplicated; F17.210 Nicotine dependence, cigarettes, uncomplicated; Z68.41 Body mass index [BMI] 40.0-44.9, adult; Z88.8 Allergy status to other drugs, medicaments and biological substances; Z79.52 Long term (current) use of systemic steroids
CPT/HCPCS: 36415; 71045; 80053; 83690; 83735; 83874; 84484; 85025; 85379; 85610; 85730; 86141; 93005; 93041

== ENCOUNTER 2020-11-09 20:04 | Emergency (ER) | payer SELFPAY ==
[~2020-11-09] VITALS: Ht 180 cm; Wt 131.8 kg
[~2020-11-09 20:04] MED LIST changes: +PANT40TA52 PO; +SUCR1TAB36 PO
[2020-11-09] MEDS ORDERED: ALPRAZolam 0.25 MG (XANAX) TAB PO ONE (20:30)
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
[2020-11-09] MEDS ORDERED: LORA-404 PO (20:43)
--- NOTE | 2020-11-09 21:28 | Diagnostic Imaging Report ---
INDICATION: Chest pain, palpitations, tingling in the extremities. COMPARISON: 11/07/2020. FINDINGS: The lungs are clear. No failure, effusion or pneumothorax. IMPRESSION: No acute appearing abnormality. Dictated by: Dictated on workstation # [id number]
[2020-11-09 21:40] VITALS: BP 149/90
== END 2020-11-09 21:40 ==
LOC: EDUNIT# 20:04 → ER 20:06
DX: F41.9 Anxiety disorder, unspecified (principal); J45.909 Unspecified asthma, uncomplicated; F17.210 Nicotine dependence, cigarettes, uncomplicated; Z88.8 Allergy status to other drugs, medicaments and biological substances; Z79.52 Long term (current) use of systemic steroids
CPT/HCPCS: 36415; 71045; 84484; 85379; 93005

== ENCOUNTER 2020-11-14 08:30 | Outpatient (RCR) | payer SELFPAY ==
[~2020-11-14 08:30] MED LIST changes: +LORA-404 PO
== END 2021-02-12 | disposition home or self-care (01) ==
LOC: CARD 08:30
PROVIDERS: ATTEND Pediatrics
DX: R00.2 Palpitations (principal)
CPT/HCPCS: 93225; 93226

== ENCOUNTER → 2020-12-27 | Outpatient (CLI) | payer SELFPAY | LOC: CARD 11:49 | PROVIDERS: ATTEND Internal Medicine Cardiovascular Disease | DX: I49.3 Ventricular premature depolarization (principal) | CPT/HCPCS: 93306 ==